=== PATIENT | female | born 1990 | race Two or more races ===

== ENCOUNTER → 2022-01-01 14:02 | Outpatient (BNVA) | payer OTHER, SELFPAY | PROVIDERS: PCP Emergency Medicine Emergency Medical Services; Visit Provider Nurse Practitioner Family | DX: G43.909 Migraine, unspecified, not intractable, without status migrainosus (principal); E66.9 Obesity, unspecified; H53.8 Other visual disturbances; H93.19 Tinnitus, unspecified ear | CPT/HCPCS: 99202 ==